=== PATIENT | female | born 1995 | race African-American/Black ===

== ENCOUNTER 2017-07-05 07:50 | Emergency (ER) | payer MEDICAID ==
[~2017-07-05] VITALS: Ht 160 cm; Wt 103.0 kg
[2017-07-05] MEDS ORDERED: KETOROLAC 30MG/ML VIAL IV ONE (10:15)
[2017-07-05] MEDS ORDERED: SODIUM CHLORIDE 0.9% 1,000 ML IV ONE (10:15)
[2017-07-05 12:37] VITALS: BP 121/69
== END 2017-07-05 13:34 | disposition home or self-care (01) ==
LOC: ER 07:50
DX: R51 Headache (principal); R42 Dizziness and giddiness; J45.909 Unspecified asthma, uncomplicated; F11.10 Opioid abuse, uncomplicated; Z88.0 Allergy status to penicillin
CPT/HCPCS: 81025; 96361; 96374; 99285; J1885; J7030

== ENCOUNTER 2017-08-03 11:49 | Emergency (ER) | payer MEDICAID ==
[~2017-08-03] VITALS: Ht 160 cm; Wt 100.0 kg
[2017-08-03 12:38] LABS: BASOPHILS % 0.9 % (0.0-2.0); EOSINOPHILS % 2.6 % (0.0-5.0); HEMATOCRIT. 38.3 % (36.0-48.0); HEMOGLOBIN. 13.2 g/dL (12.0-16.0); LYMPHOCYTES % 50.5 % (20.0-50.0); MEAN CORPUSCULAR HEMOGLOBIN 31.8 pg (28.0-32.0); MEAN CORPUSCULAR VOLUME 92.4 fL (81.0-99.0); MEAN PLATELET VOLUME 8.1 fl (7.4-10.4); MONOCYTES % 13.6 % (2.0-8.0); NEUTROPHILS % 32.4 % (40.0-76.0); PLATELET 256 x1000/uL (130-400); RED BLOOD CELL COUNT 4.14 mill/uL (4.2-5.4); RED CELL DISTRIBUTION WIDTH 13.6 % (11.6-14.6)
[2017-08-03 12:44] LABS: CHLORIDE 106 mEq/L (98-107); PROTHROMBIN TIME 10.8 sec (9.4-11.6)
[2017-08-03 12:57] LABS: HCG SCREEN NEGATIVE
[2017-08-03 14:16] LABS: CLARITY URINE CLEAR (CLEAR); COLOR URINE YELLOW (YELLOW); KETONES URINE NEGATIVE (NEGATIVE); LEUKOCYTE ESTERASE URINE NEGATIVE (NEGATIVE); NITRITE URINE NEGATIVE (NEGATIVE); OCCULT BLOOD URINE TRACE (NEGATIVE); PH URINE 5.5 (4.5-8.0); PROTEIN URINE NEGATIVE (NEGATIVE); SPECIFIC GRAVITY URINE 1.027 (1.005-1.030); UROBILINOGEN URINE 0.2 E.U./dL (0.2-1.0)
[2017-08-03 16:05] VITALS: BP 119/67
== END 2017-08-03 16:15 | disposition home or self-care (01) ==
LOC: ER 14:40
DX: R10.13 Epigastric pain (principal); K92.1 Melena; J45.909 Unspecified asthma, uncomplicated; Z88.0 Allergy status to penicillin
CPT/HCPCS: 36415; 71045; 80053; 81003; 83690; 84703; 85025; 85610; 99285

== ENCOUNTER 2018-01-05 04:39 | Emergency (ER) | payer MEDICAID ==
[~2018-01-05] VITALS: Ht 160 cm; Wt 104.0 kg
[2018-01-05] MEDS ORDERED: DIPHENHYDRAMINE 50MG/ML VIAL IV ONE (07:00)
[2018-01-05] MEDS ORDERED: METHYLPREDNISOLONE SOD SUCC 125 MG/2 ML VIAL IV ONE (07:00)
[2018-01-05] MEDS ORDERED: FAMOTIDINE 20MG/2ML VIAL IV ONE (07:00)
[2018-01-05] MEDS ORDERED: ACETAMINOPHEN 325MG TABLET PO ONE (08:00)
[2018-01-05 08:27] VITALS: BP 126/66
== END 2018-01-05 08:35 | disposition home or self-care (01) ==
LOC: ER 04:39
DX: T78.40XA Allergy, unspecified, initial encounter (principal); X58.XXXA Exposure to other specified factors, initial encounter; M54.89 Other dorsalgia; R03.0 Elevated blood-pressure reading, without diagnosis of hypertension
CPT/HCPCS: 96374; 96375; 99284; J1200; J2930; J3490; Z7610

== ENCOUNTER 2020-01-30 14:22 | Emergency (ER) | payer MEDICAID ==
[~2020-01-30] VITALS: Ht 160 cm; Wt 111.0 kg
[2020-01-30] MEDS ORDERED: KETOROLAC 30MG/ML VIAL IV STA (16:16)
[2020-01-30] MEDS ORDERED: ONDANSETRON HCL 4MG/2ML INJ IV STA ×2 (16:16→18:18)
[2020-01-30] MEDS ORDERED: MAGNESIUM CITRATE 300ML SOLUTION PO ONE (16:30)
[2020-01-30] MEDS ORDERED: SODIUM CHLORIDE 0.9% 1,000 ML IV ONE (16:30)
[2020-01-30 16:56] LABS: BASOPHILS % 0.8 % (0.0-2.0); EOSINOPHILS % 1.1 % (0.0-5.0); HEMATOCRIT. 38.5 % (36.0-48.0); HEMOGLOBIN. 13.2 g/dL (12.0-16.0); LYMPHOCYTES % 44.3 % (20.0-50.0); MEAN CORPUSCULAR HEMOGLOBIN 32.5 pg (28.0-32.0); MEAN CORPUSCULAR VOLUME 95.2 fL (81.0-99.0); MEAN PLATELET VOLUME 8.7 fl (7.4-10.4); MONOCYTES % 7.4 % (2.0-8.0); NEUTROPHILS % 46.4 % (40.0-76.0); PLATELET 275 x1000/uL (130-400); RED BLOOD CELL COUNT 4.05 mill/uL (4.2-5.4); RED CELL DISTRIBUTION WIDTH 13.4 % (11.6-14.6)
[2020-01-30 17:08] LABS: CHLORIDE 108 mEq/L (98-107)
[2020-01-30] MEDS ORDERED: MORPHINE SULFATE 4 MG/ML CPJ (NOT FOR IM USE) IV STA (18:18)
[2020-01-30 19:40] LABS: CLARITY URINE CLEAR (CLEAR); COLOR URINE YELLOW (YELLOW); KETONES URINE NEGATIVE (NEGATIVE); LEUKOCYTE ESTERASE URINE NEGATIVE (NEGATIVE); NITRITE URINE POSITIVE (NEGATIVE); OCCULT BLOOD URINE 1+ (NEGATIVE); PH URINE 5.5 (4.5-8.0); PROTEIN URINE NEGATIVE (NEGATIVE); SPECIFIC GRAVITY URINE 1.025 (1.005-1.030); UROBILINOGEN URINE 0.2 E.U./dL (0.2-1.0)
[2020-01-30 21:40] VITALS: BP 126/54
== END 2020-01-30 21:40 | disposition home or self-care (01) ==
LOC: ER 14:51
DX: R10.11 Right upper quadrant pain (principal); J45.909 Unspecified asthma, uncomplicated; Z88.0 Allergy status to penicillin
CPT/HCPCS: 36415; 74018; 74176; 76705; 80053; 81003; 81025; 83690; 85025; 93005; 96374; 96375; 96376; 99285; J1885; J2405; J7030

== ENCOUNTER 2020-08-18 21:49 | Emergency (ER) | payer MEDICAID ==
[~2020-08-18] VITALS: Ht 160 cm; Wt 107.0 kg
[2020-08-18] MEDS ORDERED: KETOROLAC 30MG/ML VIAL IM ONE (23:00)
[2020-08-18] MEDS ORDERED: NAPR-1176 MT (23:08)
[2020-08-18 23:30] VITALS: BP 121/69
== END 2020-08-18 23:30 | disposition home or self-care (01) ==
LOC: ER 21:49
DX: M54.2 Cervicalgia (principal); M54.6 Pain in thoracic spine; J45.909 Unspecified asthma, uncomplicated; Z88.0 Allergy status to penicillin
CPT/HCPCS: 81025; 96372; 99283; J1885